=== PATIENT | male | born 1960 | race Caucasian/White ===

== ENCOUNTER 2021-04-07 08:47 | Emergency (ER) | payer MEDICARE, MEDICAID ==
[~2021-04-07] VITALS: Ht 167.6 cm; Wt 60.3 kg
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
[2021-04-07 09:20] VITALS: BP 100/66
== END 2021-04-07 10:32 | disposition home or self-care (01) ==
LOC: M.ERS 08:47
DX: Z91.81 History of falling (principal); W18.09XA Striking against other object with subsequent fall, initial encounter; Y93.89 Activity, other specified; Y92.89 Other specified places as the place of occurrence of the external cause; Y99.8 Other external cause status

== ENCOUNTER 2021-05-26 12:29 | Emergency (ER) | payer OTHER, MEDICAID ==
[~2021-05-26] VITALS: Ht 167.6 cm; Wt 61.2 kg
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
[2021-05-26] MEDS ORDERED: DESYREL150 MG PO (12:41)
[2021-05-26] MEDS ORDERED: BACLOFEN20 MG PO (12:42)
[2021-05-26] MEDS ORDERED: METRONIDAZOLE500 M4 PO (12:42)
[2021-05-26] MEDS ORDERED: TRAMADOL 50 MG50 MG PO (12:42)
[2021-05-26] MEDS ORDERED: GABAPENTIN600 M1 PO (12:43)
[2021-05-26] MEDS ORDERED: LIPITOR10 MG PO (12:43)
[2021-05-26 12:48] LABS: URINE BLOOD TRACE (Negative); URINE CLARITY CLOUDY; URINE COLOR BROWN; URINE GLUCOSE-RANDOM TRACE (Negative); URINE KETONES 1+ (Negative); URINE PROTEIN 2+ (Negative); URINE SPECIFIC GRAVITY 1.025 (1.005-1.030)
[2021-05-26 12:52] LABS: ICTOTEST (BILI CONFIRMATORY) Negative (Negative); URINE BILIRUBIN 2+ (Negative); URINE LEUKOCYTES-REFLEX 2+ (Negative); URINE NITRITE-REFLEX POSITIVE (Negative)
[2021-05-26 12:54] LABS: CASTS None Seen /LPF (None Seen); CRYSTALS None Seen /LPF (None Seen); MUCUS 0-3 Light strn/LPF (None Seen); SQUAMOUS 4-10 Moderate /LPF (0-3); URINE RBC >20 Many /HPF (0-2); URINE WBC-REFLEX 0-5 Rare /HPF (0-5)
--- NOTE | 2021-05-26 13:23 | EKG ---
[place] [address] ELECTROCARDIOGRAM REPORT Name: KAREEM CARMONA [place] Room: [facility].#: [id number] Admission: Attend Phys: Discharge: Date of : 56 Date of Service: 05/26/21 1302 Report #: [id number] THIS REPORT FOR: //name// [facility] ED Test Date: 2021-05-26 Test Time: 13:02:04 Pat Name: KAREEM CARMONA Department: Room: Gender: Technical Lead: : 1960 Requested By: Joni Mcdonough Order Number: [id number] MD: Kirill Carmona Measurements Intervals [place] Rate: 57 P: 50 KS: 185 QRS: 8 QRSD: 108 T: 50 QT: 427 QTc: 416 Interpretive Statements Sinus rhythm No previous ECG available for comparison Electronically Signed On 05-26-2021 13:23:28 STEAM TENDER by Kirill Carmona [email or web address] <ELECTRONICALLY SIGNED> By: Kirill Carmona MD, [facility] 05/26/21 1323 01 1302 Kirill Carmona MD, FACC /EPI
[2021-05-26 13:31] LABS: HEMATOCRIT 41.9 % (42.0-52.0); HEMOGLOBIN 13.9 gm/dL (14.0-18.0); NUCLEATED RBCS 0 /100WBC
[2021-05-26 13:33] LABS: MCH 30.3 pg (26.0-34.0); MCV 91.8 fL (80.0-100.0); MPV 9.7 fl. (7.2-11.1); RBC 4.57 mil/uL (4.50-6.00); RDW-CV 15.3 % (10.5-14.5); WBC 8.9 thou/uL (4.0-11.0)
[2021-05-26 13:35] LABS: CALCIUM 8.3 mg/dL (8.5-10.1); POTASSIUM 3.5 mmol/L (3.5-5.1)
[2021-05-26 13:40] LABS: TOTAL BILIRUBIN 0.3 mg/dL (<0.1-1.0); TOTAL PROTEIN 6.7 g/dL (6.4-8.2)
[2021-05-26 13:53] LABS: ABSOLUTE LYMPHOCYTES 1.7 thou/uL (0.8-5.3); ABSOLUTE MONOCYTES 0.3 thou/uL (0.0-1.2); ABSOLUTE NEUTROPHILS 6.9 thou/uL (1.6-8.1)
[2021-05-26 13:54] LABS: PLATELET ESTIMATE ADEQUATE
[2021-05-26 13:55] LABS: PLATELET COUNT* 259 thou/uL (150-400)
[2021-05-26] MEDS ORDERED: ONDANSETRON ODT4 MG PO (14:20)
[2021-05-26] MEDS ORDERED: CEPHALEXIN500 MG PO (14:20)
[2021-05-26 16:40] VITALS: BP 120/76
== END 2021-05-26 16:41 | disposition home or self-care (01) ==
LOC: M.ERS 12:29
PROVIDERS: Physician Assistant
DX: N39.0 Urinary tract infection, site not specified (principal); F17.210 Nicotine dependence, cigarettes, uncomplicated; Z79.899 Other long term (current) drug therapy